=== PATIENT | male | born 1995 | race Caucasian/White ===

== ENCOUNTER 2020-04-03 06:53 | Emergency (ER) | payer BC ==
[~2020-04-03] VITALS: Ht 205.7 cm; Wt 112.7 kg
[2020-04-03 07:21] VITALS: TEMP 98.4
[2020-04-03 08:18] LABS: BASO # 0.1 (0.0-0.2); EOS # 0.1 (0.0-0.7); GRAN # 2.7 (1.4-6.5); GRAN % 44.2 % (42.2-75.2); HEMATOCRIT 42.2 % (42.0-52.0); HEMOGLOBIN 14.5 g/dl (13.5-18.0); LYMPH # 2.7 (1.2-3.4); LYMPH % 43.9 % (20.0-51.0); MEAN CELL VOLUME 85 fl (80.0-100.0); MEAN CORPUSCULAR HEMOGLOBIN 29 pg (27.0-31.0); MEAN CORPUSCULAR HGB CONC 34 g/dl (33.0-37.0); MEAN PLATELET VOLUME 10.7 fl (7.4-10.4); MONO # 0.5 (0.1-0.6); MONO % 8.6 % (1.7-9.3); PLATELET COUNT 264 K/mm3 (130-400); RED BLOOD COUNT 4.98 M/mm3 (4.20-5.60)
[2020-04-03 08:24] LABS: PROTHROMBIN TIME 10.7 SECONDS (9.7-12.8)
[2020-04-03 08:27] LABS: PARTIAL THROMBOPLASTIN TIME 34.6 SECONDS (26.0-37.0)
[2020-04-03 08:44] LABS: D-DIMER < 200.00 ng/mLDDu (200-230)
[2020-04-03 08:52] LABS: TROPONIN-I < 0.012 ng/mL (0.000-0.035)
[2020-04-03 08:53] LABS: ALANINE AMINOTRANSFERASE 36 U/L (4-49); ALBUMIN 4.6 gm/dL (3.5-5.0); ALKALINE PHOSPHATASE 58 U/L (50-136); ANION GAP 8 mmol/L (7-16); AST,SGOT 31 U/L (15-37); BILIRUBIN,TOTAL 0.4 mg/dL (0.0-1.0); BLOOD UREA NITROGEN 14 mg/dL (9-20); CALCIUM 9.4 mg/dL (8.4-10.2); CARBON DIOXIDE 29 mmol/L (22-30); CHLORIDE 105 mmol/L (98-107); CREATININE, serum 0.96 (0.66-1.25); GLUCOSE 96 mg/dL (74-106); POTASSIUM 3.9 mmol/L (3.4-5.0); SODIUM 142 mmol/L (137-145); TOTAL PROTEIN 7.3 gm/dL (6.4-8.2)
[2020-04-03 08:54] LABS: C-REACTIVE PROTEIN < 0.5 mg/dL (0.0-0.9)
[2020-04-03] MEDS ORDERED: VOLTAREN 75 DR75 MG PO (09:11)
[2020-04-03 13:47] VITALS: BP 137/85; PULSE 76
== END 2020-04-03 10:30 | disposition home or self-care (01) ==
LOC: COL.ER 06:53
PROVIDERS: Family Medicine
DX: R09.1 Pleurisy (principal)
CPT/HCPCS: J1885